=== PATIENT | male | born 1990 | race Two or more races ===

== ENCOUNTER 2017-12-21 02:30 | Emergency (ER) | payer OTHER ==
[2017-12-21] MEDS ORDERED: NS 0.9% 1000 ML* 1,000 ML IV ONE (02:49)
[2017-12-21] MEDS ORDERED: Metoclopramide IV* 5 MG/ML 2 ML VIAL IV SLOW PU ONE (02:50)
[2017-12-21 03:10] LABS: ABS Basophils 0.1 10^3/ul (0-0.2); ABS Eosinophils 0.2 10^3/ul (0-0.6); ABS Lymphocytes 2.1 10^3/ul (1.0-4.8); ABS Monocytes 0.7 10^3/ul (0-0.8); ABS Neutrophils 4.4 10^3/ul (1.5-7.7); ABS Nucleated RBC 0 10^3/ul; Eosinophil % 2.3 % (0-6); Hematocrit 42 % (42-52); Hemoglobin 14.3 g/dl (14.0-18.0); Lymphocyte % 28.6 % (25-47); Mean Corpuscular HGB Conc 34 g/dl (31-36); Mean Corpuscular Hemoglobin 31 pg (27-31); Mean Corpuscular Volume 90 fL (80-94); Mean Platelet Volume 9.1 um3 (7.4-10.4); Nucleated Red Blood Cells % 0.1; Platelet Count 219 10^3/ul (150-450); Red Blood Count 4.62 10^6/ul (4.0-5.4); Red Cell Distribution Width 13 % (10.5-15); White Blood Count 7.4 10^3/ul (3.5-10.8)
[2017-12-21 03:19] LABS: EGFR Non-African American 77.5 (>60)
[2017-12-21 03:25] LABS: Urine Appearance Clear; Urine Blood 1+ (Negative); Urine Color Colorless; Urine Ketones Negative (Negative); Urine Protein Negative (Negative); Urine Specific Gravity 1.003 (1.010-1.030); Urine Urobilinogen Negative (Negative)
[2017-12-21] MEDS ORDERED: Iohexol 300* (CONTRAST) 10 ML SDV IV ONE (03:32)
--- NOTE | 2017-12-21 05:25 | ED ---
Sivakumar Cochran Rebecca, scribed for Franklyn De La Rosa MD on 12/21/17 at 0246 . Abdominal Pain/Male - HPI Summary HPI Summary: Pt is a 27 y/o M who presents to ED c/o abdominal pain. Sx began yesterday morning at 0900, initially in the umbilical region, now in the RLQ. On triage, pain is moderate, ranked 5/10. Sx alleviated by medication taken [employer], aggravated by nothing. Additionally c/o subjective fever, chills, and decreased appetite. Denies vomiting. - History of Current Complaint Chief Complaint: EDAbdPain Stated Complaint: ABD PAIN Time Seen by Provider: 12/21/17 02:38 Hx Obtained From: Patient Onset/Duration: Still Present Severity Currently: Moderate Pain Intensity: 5 Pain Scale Used: 0-10 Numeric Location: Discrete At: RLQ, Umbilical Aggravating Factor(s): Nothing Alleviating Factor(s): Medications Associated Signs And Symptoms: Positive: Fever, Decreased Appetite. Negative: Vomiting - Allergies/Home Medications Allergies/Adverse Reactions: Allergies Allergy/AdvReac Type Severity Reaction Status Date / Time No Known Allergies Allergy Verified 12/21/17 02:34 Home Medications: Home Medications NK [No Home Medications Reported] 12/21/17 [History Confirmed 12/21/17] PMH/Surg Hx/FS Hx/Imm Hx Previously Healthy: Yes Endocrine/Hematology History: Denies: Hx Diabetes Cardiovascular History: Denies: Hx Coronary Artery Disease Infectious Disease History: No Infectious Disease History: Denies: Traveled Outside the [place] in Last 30 Days - Family History Known Family History: Negative: Diabetes Review of Systems Positive: Fever, Chills Positive: Abdominal Pain, Other - Decreased appetite. Negative: Vomiting All Other Systems Reviewed And Are Negative: Yes Physical Exam - Summary Physical Exam Summary: VITAL SIGNS: Reviewed. GENERAL: ~Patient is a well-developed and nourished male who is lying comfortable in the stretcher. Patient is not in any acute respiratory distress. HEAD AND FACE: No signs of trauma. No ecchymosis, hematomas or skull depressions. No sinus tenderness. EYES: PERRLA, EOMI x 2, No injected conjunctiva, no nystagmus. EARS: Hearing grossly intact. Ear canals and tympanic membranes are within normal limits. MOUTH: Oropharynx within normal limits. NECK: Supple, trachea is midline, no adenopathy, no JVD, no carotid bruit, no c- spine tenderness, neck with full ROM. CHEST: Symmetric, no tenderness at palpation LUNGS: Clear to auscultation bilaterally. No wheezing or crackles. CVS: Regular rate and rhythm, S1 and S2 present, no murmurs or gallops appreciated. ABDOMEN: Soft, RLQ tenderness to deep palpation. No signs of distention. No rebound no guarding, and no masses palpated. Bowel sounds are normal. EXTREMITIES: FROM in all major joints, no edema, no cyanosis or clubbing. NEURO: Alert and oriented x 3. No acute neurological deficits. Speech is normal and follows commands. SKIN: Dry and warm Triage Information Reviewed: Yes Vital Signs On Initial Exam: Initial Vitals Temp Pulse Resp BP Pulse Ox 97.9 F 74 16 144/89 97 12/21/17 02:31 12/21/17 02:31 12/21/17 02:31 12/21/17 02:31 12/21/17 02:31 Vital Signs Reviewed: Yes Diagnostics - Vital Signs Vital Signs Temp Pulse Resp BP Pulse Ox 12/21/17 02:31 97.9 F 74 16 144/89 97 - Laboratory Result Diagrams: 12/21/17 02:51 12/21/17 02:51 Lab Statement: Any lab studies that have been ordered have been reviewed, and results considered in the medical decision making process. - CT CT Abd/Pel CT Interpretation Completed By: Radiologist - Nephrolithiasis. ED physician reviewed this report. Pending official report. Re-Evaluation - Re-Evaluation First Eval Re-Evaluation Time: 05:11 Change: Improved Comment: Discussed results and D/C plan. Abdominal Pain Fem Course/Dx - Course Assessment/Plan: Pt is a 27 y/o M who presents to ED c/o abdominal pain since yesterday morning at 0900, initially in the umbilical region, now in the RLQ. On triage, pain is moderate, ranked 5/10. Sx alleviated by medication taken [employer]. Additionally c/o subjective fever, chills, and decreased appetite. Denies vomiting. Blood work and UA were done with results including potassium of 3.4 [address] negative for UTI. CT abd/pel reveals nephrolithiasis. In the ED course, pt received Reglan and fluids which improved sx. Pt will be D/C to home with Dx of abdominal pain. Pt understands and agrees. - Diagnoses Provider Diagnoses: Abdominal pain Discharge - Sign-Out/Discharge Documenting (check all that apply): Discharge/Admit/Transfer - Discharge - Discharge Plan Condition: Stable Disposition: HOME Patient Education Materials: Acute Abdominal Pain (ED) Referrals: Apran Chang MD [Primary Care Provider] - 3 Days Additional Instructions: RETURN TO ED FOR ANY NEW OR WORSENING SYMPTOMS. The documentation as recorded by the Sivakumar lino Rebecca accurately reflects the service I personally performed and the decisions made by Rj hernandez Abdul, MD.
[2017-12-21 05:54] VITALS: BP 106/69
--- NOTE | 2017-12-21 08:08 | RAD ---
CLINICAL HISTORY: AP, abdominal pain COMPARISON: None TECHNIQUE: Multiple contiguous axial CT scans were obtained of the abdomen and pelvis after the administration of intravenous contrast. Coronal and sagittal multiplanar reformations are submitted for review. Oral contrast was not administered. Delayed images were obtained through the abdomen. FINDINGS: LUNG BASES: The lung bases are clear. LIVER: The liver is normal in shape, size, contour, and attenuation. BILE DUCTS: There is no intrahepatic or extrahepatic biliary dilatation. GALLBLADDER: The gallbladder is normal, without pericholecystic inflammatory change. PANCREAS: The pancreas is normal, without mass or ductal dilatation. SPLEEN: Normal in size and appearance. UPPER GI TRACT: Evaluation of the gastrointestinal tract is limited by incomplete gastric distention. The upper GI tract is unremarkable. SMALL BOWEL AND MESENTERY: The small bowel is normal in contour, course, and caliber. There is no obstruction or dilatation. COLON: The colon is normal in contour, course, caliber. There is no pericolonic inflammatory change. There is a tubular, vermiform, hollow viscus that is blind ending, and originates from the cecum, consistent with a normal appendix. There is no periappendiceal inflammatory change. This is best seen on coronal images 29 through 36. ADRENALS: Normal bilaterally. KIDNEYS: There is a 0.3 center nonobstructing renal calyceal stone of the upper pole of the left kidney. BLADDER: The bladder is smooth in contour. PELVIC ORGANS: The prostate gland is normal. The seminal vesicles are symmetric. AORTA: The aorta is normal. IVC: Unremarkable LYMPH NODES: There is no lymphadenopathy by size criteria. ABDOMINAL WALL: There is no evidence for abdominal wall hernia. BONES AND SOFT TISSUES: Unremarkable OTHER: None IMPRESSION: NONOBSTRUCTING LEFT RENAL CALYCEAL STONE. NORMAL APPENDIX.
== END 2017-12-21 05:56 | disposition home or self-care (01) ==
LOC: ED 02:30
DX: R10.31 Right lower quadrant pain (principal); R50.9 Fever, unspecified; N20.0 Calculus of kidney
CPT/HCPCS: 36415; 74177; 80053; 81003; 81015; 82150; 83605; 83690; 85025; 86140; 96374; 99283; Q9967